=== PATIENT | male | born 1990 | race Caucasian/White ===

== ENCOUNTER 2018-03-18 18:56 | Emergency (ER) | payer BC, OTHER ==
[~2018-03-18] VITALS: Ht 182.9 cm; Wt 104.3 kg
--- NOTE | 2018-03-18 19:11 | NUR ---
PT TAKEN TO BED 3
[2018-03-18 19:12] VITALS: BP 132/73
--- NOTE | 2018-03-18 19:19 | NUR ---
Dr. Reddy evaluating patient at bedside.
[2018-03-18 19:43] VITALS: BP 132/73
--- NOTE | 2018-03-18 19:43 | NUR ---
Patient discharged with v/s stable. Written and verbal after care instructions given and explained by Dr. Reddy. Patient alert, oriented and verbalized understanding of instructions. Ambulatory with steady gait. All questions addressed prior to discharge. ID band removed. Patient advised to follow up with PMD. Rx of erythromycin 0.5% given. Patient educated on indication of medication including possible reaction and side effects. Opportunity to ask questions provided and answered.
--- NOTE | 2018-03-18 19:46 | NUR ---
CONDUCTED EYE TEST AFTER VERBAL ORDER FROM [facility]. RIGHT EYE 20/30, LEFT EYE 20/25, BOTH EYES TOGETHER 20/25
== END 2018-03-18 19:43 | disposition home or self-care (01) ==
LOC: MED 18:56
DX: H10.9 Unspecified conjunctivitis (principal)
CPT/HCPCS: 99283